=== PATIENT | male | born 1955 | race American Indian/Alaskan Native ===

== ENCOUNTER 2018-12-26 08:55 | Inpatient (IN) | payer MEDICARE ==
[2018-12-26 09:55] VITALS: BMI 26.9
[2018-12-26] MEDS ORDERED: Propofol 10 mg/ml Inj (20 ML) ONE (11:11)
[2018-12-26] MEDS ORDERED: Midazolam 2 MG/2 ML VIAL ONE (11:11)
[2018-12-26] MEDS ORDERED: cefTRIAXone 1 gm 1 GM/100 ML BAG IVPB ONE (11:27)
[2018-12-26] MEDS ORDERED: Lidocaine 2% Jelly (Uro-Jet) ONE (11:27)
[2018-12-26] MEDS ORDERED: Gentamicin 80 mg in 0.9% NS 0 MG/0 ML BAG IVPB ONE (11:27)
[2018-12-26] MEDS ORDERED: HYDROmorphone 0.5 mg/0.5 ml ISec IVP PRN (13:12)
[2018-12-26] MEDS ORDERED: Lactated Ringer's 1,000 ML IV SCH (13:15)
--- NOTE | 2018-12-26 13:21 | PCM.SURG1 ---
Surgeon's Initial Post Op Note - Surgeon's Notes Surgeon: Andrew Reyes Sql Bi Developer: none Type of Anesthesia: General LMA Pre-Operative Diagnosis: BPH. Urinary retention Operative Findings: same Post-Operative Diagnosis: same Operation Performed: TURP Specimen/Specimens Removed: urine. prostate Estimated Blood Loss: EBL {In ML}: 100 Blood Products Given: N/A Post-Op Condition: Good Date of Surgery/Procedure: 12/26/18 Time of Surgery/Procedure: 13:05
[2018-12-26] MEDS: Dextrose 5%/0.45% NS 1,000 ML IV SCH (17:11)
[2018-12-27] MEDS ORDERED: Oxycodone/Acetaminophen 5/325 mg Tab PO PRN (00:08)
--- NOTE | 2018-12-27 03:15 | HP ---
CHIEF COMPLAINT: The patient was admitted after TURP. HISTORY OF PRESENT ILLNESS: This is a 63-year-old male with history of hypertension. He was admitted after he underwent a TURP with Dr. Reyes, and postoperatively the patient is having some urinary complaints and blood in the urine. The patient denies any nausea or vomiting. He denies any dysuria. The patient has had hematuria in the Giles catheter. He denies any abdominal pain. No fever. No chills or rigor. No chest pain. No nausea or vomiting. No dizziness. No vertigo. The patient is feeling of some postop pain. No joint pain. No hip pain. ALLERGIES: UNKNOWN ALLERGIES. PAST MEDICAL HISTORY: Hypertension. SOCIAL HISTORY: Ex-smoker, non-EtOH user. PHYSICAL EXAMINATION: GENERAL: An elderly male, in minimal distress. VITAL SIGNS: Blood pressure is 116/81, pulse 96, respiratory rate 20, temperature 98.1. SKIN: No rashes. No bruises. HEENT: Atraumatic, normocephalic. Negative pallor. Negative jaundice. Extraocular movements are intact. NECK: Supple. No JVD. No lymph node. No thyromegaly. No carotid bruits. CHEST WALL: Bilateral symmetrical expansion. LUNGS: Clear. No rales. No rhonchi. CARDIOVASCULAR SYSTEM: S1 and S2, regular. ABDOMEN: Soft, nontender. Bowel sounds are positive. RECTAL AND PELVIS: Cannot be done. The patient has a 3-way Giles with bladder irrigation with blood-tinged urine. EXTREMITIES: No clubbing, cyanosis, or edema. CENTRAL NERVOUS SYSTEM: Normal. ASSESSMENT: 1. Status post transurethral resection of prostate. 2. Hypertension. PLAN: Continue bladder irrigation. Monitor the patient. Jaime Bashir MD
[2018-12-27] MEDS: Dextrose 5%/0.45% NS 1,000 ML IV SCH ×3 (05:34→14:02)
[2018-12-27 08:12] LABS: MEAN CELL VOLUME 77.6 fL (80.0-94.0); MEAN CORPUSCULAR HEMOGLOBIN 25.7 pg (27.0-31.0); MEAN CORPUSCULAR HGB CONC 33.1 g/dL (33.0-37.0); MEAN PLATELET VOLUME 7.3 fL (7.2-11.7); RBC 5.04 Mil/uL (4.40-5.90); RED CELL DISTRIBUTION WIDTH 15.3 % (11.5-14.5); WHITE BLOOD COUNT 11.7 K/uL (4.8-10.8)
[2018-12-27 08:24] LABS: CALCIUM 8.5 mg/dl (8.6-10.4)
[2018-12-27] MEDS: Pantoprazole 40 mg EC Tab PO SCH (09:05)
--- NOTE | 2018-12-28 04:04 | CP.PCM.HP ---
Present on Admission - Present on Admission Any Indicators Present on Admission: No Past Patient History - Past Medical History & Family History Past Medical History?: Yes - Past Social History Smoking Status: Never Smoked - CARDIAC Hx Cardiac Disorders: Yes Hx Hypercholesterolemia: Yes Hx Hypertension: Yes - PULMONARY Hx Respiratory Disorders: No - NEUROLOGICAL Hx Neurological Disorder: Yes HX Cerebrovascular Accident: Yes - HEENT Hx HEENT Problems: No - RENAL Hx Chronic Kidney Disease: Yes Other/Comment: H/O NEPHROSIS. HX: RENAL INSUFFICENCY - ENDOCRINE/METABOLIC Hx Endocrine Disorders: No - HEMATOLOGICAL/ONCOLOGICAL Hx Blood Disorders: Yes Hx Blood Transfusions: Yes (2008 colon resection post op) Hx Blood Transfusion Reaction: No Hx Cancer: Yes (colon resection 2008) Hx Chemotherapy: No - INTEGUMENTARY Hx Dermatological Problems: No - MUSCULOSKELETAL/RHEUMATOLOGICAL Hx Musculoskeletal Disorders: Yes Hx Back Pain: Yes Hx Falls: Yes Hx Fractures: Yes (left middle finger childhood) Hx Gout: Yes Hx Herniated Disk: Yes Other/Comment: HX: CERVICAL LAMINECTOMY. HX: UMBILICAL HERNIA. HX: INGUINAL HERNIA - GASTROINTESTINAL Hx Gastrointestinal Disorders: Yes Other/Comment: colon cancer 2009 resection - GENITOURINARY/GYNECOLOGICAL Hx Genitourinary Disorders: Yes Other/Comment: HX: URINARY RETENTION/INDWELLING CATHETER - PSYCHIATRIC Hx Psychophysiologic Disorder: No - SURGICAL HISTORY Hx Surgeries: Yes Hx Herniorrhaphy: Yes (Right left ing hernia repairs childhood umbilical 2000) Hx Orthopedic Surgery: Yes (CERVICAL LAMINECTOMY) Other/Comment: 2008 colon resection cancer - ANESTHESIA Hx Anesthesia: Yes Hx Anesthesia Reactions: No Hx Malignant Hyperthermia: No Meds Allergies/Adverse Reactions: Allergies Allergy/AdvReac Type Severity Reaction Status Date / Time No Known Allergies Allergy Unverified 07/14/13 15:32 Results - Vital Signs Recent Vital Signs: Last Vital Signs Temp 97.9 F 12/27/18 23:51 Pulse 89 12/27/18 23:51 Resp 20 12/27/18 23:51 BP 131/76 12/27/18 23:51 Pulse Ox 98 12/27/18 23:51 - Labs Result Diagrams: 12/27/18 08:03 12/27/18 08:03 Labs: Laboratory Results - last 24 hr 12/27/18 12/27/18 08:03 08:03 WBC 11.7 H RBC 5.04 Hgb 13.0 Hct 39.1 MCV 77.6 L MCH 25.7 L MCHC 33.1 RDW 15.3 H Plt Count 215 D MPV 7.3 Sodium 132 Potassium 4.3 Chloride 100 Carbon Dioxide 23 Anion Gap 13 BUN 35 H Creatinine 2.1 H Est GFR ( Amer) 39 Est GFR (Non-Af Amer) 32 Random Glucose 94 D Calcium 8.5 L
--- NOTE | 2018-12-28 04:04 | CP.PCM.PN ---
Subjective - Date & Time of Evaluation Date of Evaluation: 12/27/18 Time of Evaluation: 07:00 - Subjective Subjective: dict Objective - Vital Signs/Intake and Output Vital Signs (last 24 hours): Temp Pulse Resp BP Pulse Ox 97.9 F 89 20 131/76 98 12/27/18 23:51 12/27/18 23:51 12/27/18 23:51 12/27/18 23:51 12/27/18 23:51 Intake and Output: 12/27/18 12/28/18 18:59 06:59 Intake Total 850 400 Output Total 500 800 Balance 350 -400 - Medications Medications: Current Medications Acetaminophen (Tylenol 325mg Tab) 650 mg PO Q6 PRN PRN Reason: Pain, moderate (4-7) Amlodipine Besylate (Norvasc) 5 mg PO DAILY [facility] Last Admin: 12/27/18 09:05 Dose: 5 mg Docusate Sodium (Colace) 100 mg PO TID [facility] Last Admin: 12/27/18 17:27 Dose: 100 mg Ceftriaxone Sodium 1 gm/ (Sodium Chloride) 100 mls @ 100 mls/hr IVPB DAILY [facility]; Protocol Last Admin: 12/27/18 10:46 Dose: 100 mls/hr Oxycodone/Acetaminophen (Percocet 5/325 Mg Tab) 1 tab PO Q4H PRN PRN Reason: for moderate pain Stop: 12/30/18 00:09 Pantoprazole Sodium (Protonix Ec Tab) 40 mg PO DAILY [facility] Last Admin: 12/27/18 09:05 Dose: 40 mg Rosuvastatin Calcium (Crestor) 10 mg PO HS [facility] Last Admin: 12/27/18 21:14 Dose: 10 mg Tamsulosin HCl (Flomax) 0.4 mg PO DAILY [facility] Last Admin: 12/27/18 09:05 Dose: 0.4 mg - Labs Labs: 12/27/18 08:03 12/27/18 08:03
--- NOTE | 2018-12-28 07:12 | PN ---
DATE: 12/28/2018 SUBJECTIVE: The patient still has Giles catheter in place; however, his bladder irrigation has been stopped. He is feeling better. No fever. No chills. He is recovering well. No nausea, vomiting. PHYSICAL EXAMINATION: VITAL SIGNS: Blood pressure 131/76, pulse 89, respiratory rate 20, temperature 97.9. LUNGS: Clear. CARDIOVASCULAR: S1, S2, regular. ABDOMEN: Soft. ASSESSMENT: 1. Obstructive uropathy, status post urine culture positive for gram-negative rods. The patient is on Rocephin, pending sensitivity. 2. Obstructive uropathy. 3. Chronic kidney disease secondary to obstructive uropathy. PLAN: Continue current medication. Monitor the patient. Jaime Bashir MD
[2018-12-28 08:18] LABS: HEMOGLOBIN 13.8 g/dL (12.0-18.0); MEAN CELL VOLUME 77.4 fL (80.0-94.0); MEAN CORPUSCULAR HGB CONC 33.6 g/dL (33.0-37.0); RBC 5.32 Mil/uL (4.40-5.90); RED CELL DISTRIBUTION WIDTH 15.2 % (11.5-14.5); WHITE BLOOD COUNT 11.5 K/uL (4.8-10.8)
[2018-12-28 08:33] LABS: ALB/GLOB RATIO 1.1 (1.0-2.1); ALBUMIN 3.6 g/dL (3.5-5.0); CALCIUM 9.5 mg/dl (8.6-10.4)
[2018-12-28] MEDS: Pantoprazole 40 mg EC Tab PO SCH (09:09)
--- NOTE | 2018-12-28 22:28 | CP.PCM.PN ---
Subjective - Date & Time of Evaluation Date of Evaluation: 12/28/18 Time of Evaluation: 07:00 - Subjective Subjective: dict Objective - Vital Signs/Intake and Output Vital Signs (last 24 hours): Temp Pulse Resp BP Pulse Ox 98.6 F 88 20 104/73 95 12/28/18 16:00 12/28/18 16:00 12/28/18 16:00 12/28/18 16:00 12/28/18 16:00 Intake and Output: 12/28/18 12/29/18 18:59 06:59 Intake Total 400 Output Total 300 Balance 100 - Medications Medications: Current Medications Acetaminophen (Tylenol 325mg Tab) 650 mg PO Q6 PRN PRN Reason: Pain, moderate (4-7) Amlodipine Besylate (Norvasc) 5 mg PO DAILY [facility] Last Admin: 12/28/18 09:09 Dose: 5 mg Docusate Sodium (Colace) 100 mg PO TID [facility] Last Admin: 12/28/18 17:42 Dose: 100 mg Oxycodone/Acetaminophen (Percocet 5/325 Mg Tab) 1 tab PO Q4H PRN PRN Reason: for moderate pain Stop: 12/30/18 00:09 Pantoprazole Sodium (Protonix Ec Tab) 40 mg PO DAILY [facility] Last Admin: 12/28/18 09:09 Dose: 40 mg Rosuvastatin Calcium (Crestor) 10 mg PO HS [facility] Last Admin: 12/28/18 21:13 Dose: 10 mg Tamsulosin HCl (Flomax) 0.4 mg PO DAILY [facility] Last Admin: 12/28/18 09:09 Dose: 0.4 mg - Labs Labs: 12/28/18 08:09 12/28/18 08:09
--- NOTE | 2018-12-29 01:26 | PN ---
DATE: 12/28/2018 SUBJECTIVE: The patient is feeling better. The patient's labs have been reviewed. BUN and creatinine are stable. He is afebrile. No shortness of breath. No nausea or vomiting. Tolerating diet. PHYSICAL EXAMINATION: VITAL SIGNS: Blood pressure 104/73, pulse 88, respiratory rate 20, and temperature 98.6. LUNGS: Clear. CARDIOVASCULAR SYSTEM: S1 and S2, regular. ABDOMEN: Soft. ASSESSMENT: 1. Urinary tract infection due to Enterococcus which is pansensitive. 2. Obstructive uropathy. 3. Anemia. 4. Chronic kidney disease. PLAN: Continue current medications. Start the patient on ampicillin for Enterococcus. Monitor the patient. Jaime Bashir MD
--- NOTE | 2018-12-29 03:09 | OP ---
PROCEDURE DATE: 12/26/2018 PREOPERATIVE DIAGNOSES: Urinary retention. Benign prostatic hyperplasia. POSTOPERATIVE DIAGNOSES: Urinary retention. Benign prostatic hyperplasia. PROCEDURES: Transurethral resection of prostate, anorectal examination, exam under anesthesia. OPERATING SURGEON: Rukhsana Reyes MD DESCRIPTION OF PROCEDURE: The patient received perioperative antibiotics. The patient was placed in lithotomy position. The genitalia prepped and draped in sterile fashion. Anesthesia was provided by the anesthesiologist. A 26-Japanese continuous flow resectoscope sheath was introduced under direct vision using the visual obturator. The urethra, prostate, and bladder were inspected. The procedure was performed under video endoscopic control. FINDINGS: There was no stricture in the anterior urethra. There was evidence of trilobar prostatic hypertrophy. Prostatic urethra was 3 cm in length and occlusive. There was a small middle lobe. The bladder was noted to be mildly trabeculated. There is mild inflammation of bladder mucosa. There were no focal lesions within the bladder. There was no bladder diverticulum. There was no bladder tumor. There was no bladder stone. The ureteral orifices were normal in position and shape. The visual obturator was removed. Resectoscope was inserted. Resection of the prostate was performed as follows: The floor tissue at the bladder neck was resected. The ureteral orifices were identified and spared throughout the resection. Thereafter, the anterior roof tissue was resected. Subsequently, the right lateral lobe was resected. Thereafter, the left lateral lobe was resected. Finally, the floor and apical prostatic tissue were resected with the surgeon's index finger within the [place] drape within the rectum. The verumontanum was spared throughout the resection. The prostatic chips were removed using the [place] scientific evacuator. The resectoscope was reinserted. Hemostasis was complete. There were no residual prostatic chips. Ureteral orifices and the verumontanum were intact. The resectoscope and sheath were removed. A Giles catheter was inserted. Bladder drainage was clear with mild traction applied. Exam under anesthesia/anorectal examination, bimanual examination was performed. There was no bladder mass. There was no abnormal pelvic mass, fixation, or induration. Prostate was supple without fixation, induration, or nodularity. The prostate prior to resection was approximately 25 g in size. The patient tolerated the procedure without complication. The patient was returned to supine position. The patient was transferred to the PACU in satisfactory condition. Rukhsana Reyes MD cc: Aura. Jaime Bashir MD [facility] # [id number]
[2018-12-29 08:01] VITALS: RESP 20
[2018-12-29] MEDS: Pantoprazole 40 mg EC Tab PO SCH (10:10)
--- NOTE | 2018-12-29 23:55 | CP.PCM.PN ---
Subjective - Date & Time of Evaluation Date of Evaluation: 12/29/18 Time of Evaluation: 07:00 - Subjective Subjective: idct Objective - Vital Signs/Intake and Output Vital Signs (last 24 hours): Temp Pulse Resp BP Pulse Ox 98.5 F 92 H 20 112/79 98 12/29/18 23:23 12/29/18 23:23 12/29/18 23:23 12/29/18 23:23 12/29/18 23:23 Intake and Output: 12/29/18 12/30/18 18:59 06:59 Intake Total 850 300 Output Total 1050 600 Balance -200 -300 - Medications Medications: Current Medications Acetaminophen (Tylenol 325mg Tab) 650 mg PO Q6 PRN PRN Reason: Pain, moderate (4-7) Amlodipine Besylate (Norvasc) 5 mg PO DAILY [facility] Last Admin: 12/29/18 10:11 Dose: Not Given Docusate Sodium (Colace) 100 mg PO TID [facility] Last Admin: 12/29/18 17:12 Dose: 100 mg Ampicillin 500 mg/ Sodium (Chloride) 100 mls @ 100 mls/hr IVPB Q6 [facility]; Protocol Last Admin: 12/29/18 23:38 Dose: 100 mls/hr Oxycodone/Acetaminophen (Percocet 5/325 Mg Tab) 1 tab PO Q4H PRN PRN Reason: for moderate pain Stop: 12/30/18 00:09 Last Admin: 12/29/18 08:37 Dose: 1 tab Pantoprazole Sodium (Protonix Ec Tab) 40 mg PO DAILY [facility] Last Admin: 12/29/18 10:10 Dose: 40 mg Rosuvastatin Calcium (Crestor) 10 mg PO HS [facility] Last Admin: 12/29/18 21:15 Dose: 10 mg Tamsulosin HCl (Flomax) 0.4 mg PO DAILY [facility] Last Admin: 12/29/18 10:10 Dose: 0.4 mg - Labs Labs: 12/28/18 08:09 12/28/18 08:09
--- NOTE | 2018-12-30 09:24 | PN ---
DATE: 12/30/2018 SUBJECTIVE: The patient is afebrile. No shortness of breath. PHYSICAL EXAMINATION: GENERAL: Blood pressure 93/61, pulse 90, respiratory rate 20, temperature 97.8. LUNGS: Clear. CARDIOVASCULAR SYSTEM: S1 and S2, regular. ABDOMEN: Soft. ASSESSMENT: 1. Chronic kidney disease due to obstructive uropathy. 2. Status post transurethral resection of prostate. 3. Ischemia. PLAN: Continue current medications. To discuss and review all of the above . Jaime Bashir MD
[2018-12-30] MEDS: Pantoprazole 40 mg EC Tab PO SCH (10:38)
--- NOTE | 2018-12-31 00:29 | CP.PCM.PN ---
Subjective - Date & Time of Evaluation Date of Evaluation: 12/30/18 Time of Evaluation: 07:00 - Subjective Subjective: dict Objective - Vital Signs/Intake and Output Vital Signs (last 24 hours): Temp Pulse Resp BP Pulse Ox 98.2 F 98 H 20 114/81 98 12/30/18 23:24 12/30/18 23:24 12/30/18 23:24 12/30/18 23:24 12/30/18 23:24 Intake and Output: 12/30/18 12/31/18 18:59 06:59 Intake Total 550 450 Output Total 500 450 Balance 50 0 - Medications Medications: Current Medications Acetaminophen (Tylenol 325mg Tab) 650 mg PO Q6 PRN PRN Reason: Pain, moderate (4-7) Amlodipine Besylate (Norvasc) 5 mg PO DAILY [facility] Last Admin: 12/30/18 10:38 Dose: 5 mg Docusate Sodium (Colace) 100 mg PO TID [facility] Last Admin: 12/30/18 17:29 Dose: 100 mg Ampicillin 500 mg/ Sodium (Chloride) 100 mls @ 100 mls/hr IVPB Q6 [facility]; Protocol Last Admin: 12/30/18 23:56 Dose: 100 mls/hr Pantoprazole Sodium (Protonix Ec Tab) 40 mg PO DAILY [facility] Last Admin: 12/30/18 10:38 Dose: 40 mg Rosuvastatin Calcium (Crestor) 10 mg PO HS [facility] Last Admin: 12/30/18 21:15 Dose: 10 mg Tamsulosin HCl (Flomax) 0.4 mg PO DAILY [facility] Last Admin: 12/30/18 10:38 Dose: 0.4 mg - Labs Labs: 12/28/18 08:09 12/28/18 08:09
[2018-12-31] MEDS: Pantoprazole 40 mg EC Tab PO SCH (10:13)
--- NOTE | 2018-12-31 11:02 | PN ---
DATE: 12/31/2018 SUBJECTIVE: The patient's urine cultures are growing Enterococcus sensitive to ampicillin. The patient has Giles catheter. The patient is supposed to go home on Giles. The patient is afebrile. No shortness of breath. No chest pain. PHYSICAL EXAMINATION: VITAL SIGNS: Blood pressure 110/76, pulse 104, respiratory rate 20, and temperature 97.6. LUNGS: Clear. CARDIOVASCULAR SYSTEM: S1 and S2. Regular. ABDOMEN: Soft. ASSESSMENT: 1. Obstructive uropathy status post. 2. Hypertension. 3. Anemia. PLAN: Continue ampicillin. The patient once is discharged, he will go home on antibiotics. Jaime Bashir MD
[2018-12-31 11:43] LABS: BASO # 0.1 K/uL (0.0-0.2); BASO % 0.9 % (0.0-2.0); EOS # 0.1 K/uL (0.0-0.7); EOS % 1.4 % (0.0-4.0); HEMOGLOBIN 13.7 g/dL (12.0-18.0); LYMPH # 1.7 K/uL (1.0-4.3); LYMPH % 22.1 % (20.0-40.0); MEAN CORPUSCULAR HEMOGLOBIN 26.4 pg (27.0-31.0); MEAN CORPUSCULAR HGB CONC 34.2 g/dL (33.0-37.0); MONO # 0.7 K/uL (0.0-0.8); MONO % 9.4 % (0.0-10.0); NEUT # 5.2 K/uL (1.8-7.0); NEUT % 66.2 % (50.0-75.0); NRBC % 0.1 % (0.0-2.0); RBC 5.19 Mil/uL (4.40-5.90); RED CELL DISTRIBUTION WIDTH 15.4 % (11.5-14.5); WHITE BLOOD COUNT 7.8 K/uL (4.8-10.8)
[2018-12-31 12:03] LABS: CALCIUM 9.9 mg/dl (8.6-10.4)
--- NOTE | 2018-12-31 13:23 | CP.PCM.PN ---
Subjective - Date & Time of Evaluation Date of Evaluation: 12/31/18 Time of Evaluation: 10:45 - Subjective Subjective: Patient seen today , awake , alert, denies any chest pain, sob, abdominal pain, N/V/D vss and labs reviewed - stable cr- base line a febrile Objective - Vital Signs/Intake and Output Vital Signs (last 24 hours): Temp Pulse Resp BP Pulse Ox 98.5 F 90 20 116/79 99 12/31/18 07:38 12/31/18 07:38 12/31/18 07:38 12/31/18 07:38 12/31/18 07:38 Intake and Output: 12/31/18 12/31/18 06:59 18:59 Intake Total 1010 Output Total 850 Balance 160 - Medications Medications: Current Medications Acetaminophen (Tylenol 325mg Tab) 650 mg PO Q6 PRN PRN Reason: Pain, moderate (4-7) Amlodipine Besylate (Norvasc) 5 mg PO DAILY [facility] Last Admin: 12/31/18 10:13 Dose: 5 mg Docusate Sodium (Colace) 100 mg PO TID [facility] Last Admin: 12/31/18 10:13 Dose: 100 mg Ampicillin 500 mg/ Sodium (Chloride) 100 mls @ 100 mls/hr IVPB Q6 [facility]; Protocol Last Admin: 12/31/18 11:44 Dose: 100 mls/hr Pantoprazole Sodium (Protonix Ec Tab) 40 mg PO DAILY [facility] Last Admin: 12/31/18 10:13 Dose: 40 mg Rosuvastatin Calcium (Crestor) 10 mg PO HS [facility] Last Admin: 12/30/18 21:15 Dose: 10 mg Tamsulosin HCl (Flomax) 0.4 mg PO DAILY [facility] Last Admin: 12/31/18 10:13 Dose: 0.4 mg - Labs Labs: 12/31/18 11:37 12/31/18 11:37 Assessment and Plan - Assessment and Plan (Free Text) Assessment: A/P 63 yr old male admitted with BPH/ urinary retention s/p TURP ON 12/26/18 sood cath draining well , no hematuria urine culture -+ positive for enterococus and sensitive to ampicillin and started on ampicillin D/w Dr. Bashir cleared fro discharge to [facility] and Dr. Bashir will take care of the patient at [facility]
[2018-12-31 16:20] VITALS: BP 105/74; PULSE 94; TEMP 97.8; O2SAT 100
--- NOTE | 2018-12-31 21:11 | PCM.URO ---
Urology Progress Note - General General: No Complaints, Tolerating Diet - Subjective Abdominal Pain: No Flank Pain: No Nausea: No Vomiting: No Voiding Well: No (CATHETER IN PLACE) Hematuria: No Dsypnea: No Chest Pain: No Fever & Chills: No Other: Had BM - Objective Lab Studies: Reviewed Lab Results Last 24 Hours: Laboratory Results - last 24 hr 12/31/18 12/31/18 11:37 11:37 WBC 7.8 RBC 5.19 Hgb 13.7 Hct 40.0 MCV 77.0 L MCH 26.4 L MCHC 34.2 RDW 15.4 H Plt Count 238 MPV 7.0 L Neut % (Auto) 66.2 Lymph % (Auto) 22.1 Hoke % (Auto) 9.4 Eos % (Auto) 1.4 Baso % (Auto) 0.9 Neut # (Auto) 5.2 Lymph # (Auto) 1.7 [place] # (Auto) 0.7 Eos # (Auto) 0.1 Baso # (Auto) 0.1 Sodium 133 Potassium 4.4 Chloride 100 Carbon Dioxide 25 Anion Gap 13 BUN 23 H Creatinine 2.4 H Est GFR ( Amer) 33 Est GFR (Non-Af Amer) 28 Random Glucose 105 Calcium 9.9 Intake & Output: Intake & Output 12/31/18 12/31/18 01/01/19 06:59 18:59 06:59 Intake Total 1010 450 Output Total 850 300 Balance 160 150 Intake: Intake, IV Amount 300 Left Antecubital 300 Oral 710 450 Output: Urine 850 300 3-way Urethral 850 300 Other: # Bowel Movements 0 0 Vital Signs: Vital Signs - 24 hr 12/30/18 12/31/18 12/31/18 23:24 07:38 16:00 Temperature 98.2 F 98.5 F 97.8 F Pulse Rate 98 H 90 94 H Respiratory 20 20 20 Rate Blood Pressure 114/81 116/79 105/74 O2 Sat by Pulse 98 99 100 Oximetry - Physical Exam Abdominal Exam: Soft, Non-Tender, Non-Distended Back: No CVA Tenderness Genitalia: Without Inflammation Urinary Catheter Draining Well: Yes Urine Color: Clear, Yellow Extremities: Normal: Bilateral - Male Phallus: Normal Scrotum: Normal Testes: Normal: Bilateral - Plan Additional Information: IMP: progressing well. For discharge (I thought pt was already discharge). Antibiotic Rx. Giles cath in place. Catheter removal t/f, for trial of voiding. Path -pending. Discussed w pt and w nursing staff - Date & Time of Note Date: 12/31/18 Time: 14:45
--- NOTE | 2018-12-31 23:44 | CP.PCM.DIS ---
Provider - Provider Date of Admission: 12/26/18 13:35 Attending physician: Jaime Bashir MD Consults: 12/31/18 15:16 Urology Consult Routine Comment: Consulting Provider: Rukhsana Reyes Consulting Physician: Rukhsana Reyes Reason for Consult: s/p cysto Time Spent in preparation of Discharge (in minutes): 45 Hospital Course - Lab Results Lab Results: Micro Results 12/26/18 14:43 Urine,Giles Urine Culture - Final Enterococcus Faecalis Most Recent Lab Values WBC 7.8 K/uL (4.8-10.8) 12/31/18 11:37 RBC 5.19 Mil/uL (4.40-5.90) 12/31/18 11:37 Hgb 13.7 g/dL (12.0-18.0) 12/31/18 11:37 Hct 40.0 % (35.0-51.0) 12/31/18 11:37 MCV 77.0 fL (80.0-94.0) L 12/31/18 11:37 MCH 26.4 pg (27.0-31.0) L 12/31/18 11:37 MCHC 34.2 g/dL (33.0-37.0) 12/31/18 11:37 RDW 15.4 % (11.5-14.5) H 12/31/18 11:37 Plt Count 238 K/uL (130-400) 12/31/18 11:37 MPV 7.0 fL (7.2-11.7) L 12/31/18 11:37 Neut % (Auto) 66.2 % (50.0-75.0) 12/31/18 11:37 Lymph % (Auto) 22.1 % (20.0-40.0) 12/31/18 11:37 Swisher % (Auto) 9.4 % (0.0-10.0) 12/31/18 11:37 Eos % (Auto) 1.4 % (0.0-4.0) 12/31/18 11:37 Baso % (Auto) 0.9 % (0.0-2.0) 12/31/18 11:37 Neut # (Auto) 5.2 K/uL (1.8-7.0) 12/31/18 11:37 Lymph # (Auto) 1.7 K/uL (1.0-4.3) 12/31/18 11:37 Swisher # (Auto) 0.7 K/uL (0.0-0.8) 12/31/18 11:37 Eos # (Auto) 0.1 K/uL (0.0-0.7) 12/31/18 11:37 Baso # (Auto) 0.1 K/uL (0.0-0.2) 12/31/18 11:37 Sodium 133 mmol/L (132-148) 12/31/18 11:37 Potassium 4.4 mmol/L (3.6-5.2) 12/31/18 11:37 Chloride 100 mmol/L (98-107) 12/31/18 11:37 Carbon Dioxide 25 mmol/L (22-30) 12/31/18 11:37 Anion Gap 13 (10-20) 12/31/18 11:37 BUN 23 mg/dL (9-20) H 12/31/18 11:37 Creatinine 2.4 mg/dL (0.8-1.5) H 12/31/18 11:37 Est GFR ( Amer) 33 12/31/18 11:37 Est GFR (Non-Af Amer) 28 12/31/18 11:37 Random Glucose 105 mg/dL (75-110) 12/31/18 11:37 Calcium 9.9 mg/dl (8.6-10.4) 12/31/18 11:37 Phosphorus 3.4 mg/dL (2.5-4.5) 12/28/18 08:09 Magnesium 1.6 mg/dL (1.6-2.3) 12/28/18 08:09 Total Bilirubin 0.7 mg/dL (0.2-1.3) 12/28/18 08:09 AST 14 U/L (17-59) L 12/28/18 08:09 ALT 9 U/L (21-72) L D 12/28/18 08:09 Alkaline Phosphatase 119 U/L (38-126) 12/28/18 08:09 Total Protein 6.7 g/dL (6.3-8.3) 12/28/18 08:09 Albumin 3.6 g/dL (3.5-5.0) 12/28/18 08:09 Globulin 3.1 gm/dL (2.2-3.9) 12/28/18 08:09 Albumin/Globulin Ratio 1.1 (1.0-2.1) 12/28/18 08:09 Discharge Plan - Discharge Medications Prescriptions: AMPicillin [Ampicillin] 250 mg PO Q6 #16 cap - Follow Up Plan Condition: GOOD Disposition: REHAB FACILITY/REHAB UNIT Instructions: Urinary Tract Infections in Adults, Ampicillin, Docusate Additional Instructions: PLease admit patient under Dr. bashir service- call Dr. Bashir upon patient arrival to the facility Please f/u with Dr. Mendez office - call and make appointment and arrange transportation ( f/u visit after cystoscopy and f/c removal ) Please continue medication as per med rec. Referrals: Jaime Bashir MD [Staff Provider] - Rukhsana eRyes MD [Staff Provider] -
--- NOTE | 2019-01-01 17:09 | DS ---
DISCHARGE DIAGNOSES: 1. Benign prostatic hyperplasia with obstructive uropathy. 2. Chronic kidney disease. 3. Dehydration. HISTORY OF PRESENT ILLNESS: This is a 63-year-old -[place] male with history of obstructive uropathy with elevated BUN and creatinine, who underwent TURP and after TURP , postop care with bladder irrigation. Urine culture grew Enterococcus which was pansensitive. The patient is being discharged to subacute rehab and the patient ____ followed up. He is also going to rehab with Giles catheter. He will be followed up as outpatient. PHYSICAL EXAMINATION: VITAL SIGNS: Blood pressure 105/74, pulse 94, respiratory rate 20, temperature 97.8. LUNGS: Clear. CARDIOVASCULAR SYSTEM: S1, S2. Regular. PLAN: Discharge the patient, outpatient followup. Jaime Bashir MD
== END 2018-12-31 18:01 | DRG 713 ==
LOC: C.SDS 08:55 → C.9S 13:35 → C.3T 16:55
PROVIDERS: ADMIT Internal Medicine; ATTEND Internal Medicine
PROC: 0VB08ZZ Excision of Prostate, Via Natural or Artificial Opening Endoscopic (ICD-10-PCS; principal; 2018-12-26 10:30)
DX: N40.1 Benign prostatic hyperplasia with lower urinary tract symptoms (principal); N13.8 Other obstructive and reflux uropathy; N39.0 Urinary tract infection, site not specified; R33.9 Retention of urine, unspecified; Z85.038 Personal history of other malignant neoplasm of large intestine; Z86.73 Personal history of transient ischemic attack (TIA), and cerebral infarction without residual deficits; Z87.891 Personal history of nicotine dependence; I12.9 Hypertensive chronic kidney disease with stage 1 through stage 4 chronic kidney disease, or unspecified chronic kidney disease; N18.9 Chronic kidney disease, unspecified; D64.9 Anemia, unspecified; B95.2 Enterococcus as the cause of diseases classified elsewhere